=== PATIENT | male | born 1965 | race Caucasian/White ===

== ENCOUNTER → 2020-10-22 15:09 | Outpatient (CLI) | payer BC, SELFPAY ==
--- NOTE | 2020-10-22 15:19 | XR_ITS ---
PROCEDURE: XR CHEST 2V CLINICAL HISTORY: CHEST PAIN AT REST, SOB COMPARISON: No exams were available for comparison FINDINGS: Normal heart size. Mild prominence of the descending thoracic aorta. The lungs are clear without infiltrates, suspicious nodules, or pleural effusions. No acute bony abnormalities. IMPRESSION: No acute findings. Dictated by: Francisco J Anderson MD 10/22/2020 15:47 Francisco J Anderson MD in [place] 10/22/2020 15:47
== END ==
PROVIDERS: PCP Family Medicine; Visit Provider Family Medicine
DX: R07.9 Chest pain, unspecified (principal); R06.02 Shortness of breath
CPT/HCPCS: 71046

== ENCOUNTER → 2020-11-02 06:20 | Outpatient (CLI) | payer BC, SELFPAY ==
--- NOTE | 2020-11-02 | CA_ITS ---
APPROVED REPORT Exam: Exercise Treadmill Technologist: Umu Celis, Ht: 5 ft 7 in Wt: 195 lbs BSA: 2.00 m2 HR: 76 bpm BP: 144/94 mmHg Stress Test Details Test: Panfilo HR Resting HR: 80 bpm Max Heart Rate (APMHR): 163 bpm Max HR Achieved: 148 bpm Target HR (85% APMHR): 138 bpm % of APMHR: 90 Recovery HR: 107 bpm BP Resting BP: 143/93 mmHg Max BP: 200/100 mmHg Recovery BP: 191.0/94.0 mmHg ECG Resting ECG: Sinus Rhythm Clinical Exercise duration: 06:16 min Highest Stage Achieved: Exercise capacity: 7.0 METs Stress ECG Conclusion Panfilo protocol completed. Exercised 06:16. Stopped due to Shortness of breath MET's: 7.0 Max BP: 200/100 Max HR: 148 % of PM: 91% Symptoms: No CP, (+) SOB during peak exercise Arrythmias/Ectopy: No ectopy ST-T Changes: Less than 1.5mm ST Depression Conclusion: Images to follow Test Summary RECOVERY 04:00 0.0 0.0 105 . 191/ 94 . . REST . . . . . . . Standing REST 55:55 0.0 0.0 80 . 143/ 93 . . Stage 1 01:00 10.0 1.7 109 . . . . Stage 1 02:00 10.0 1.7 118 . 190/ 90 . . Stage 1 03:00 10.0 1.7 124 . 190/ 90 . . Stage 2 01:00 12.0 2.5 133 . . . . Stage 2 . . . . . . . Cardiolite injected Stage 2 02:00 12.0 2.5 139 . . . . Stage 2 03:00 12.0 2.5 144 . . . . Stage 3 00:16 14.0 3.4 146 . 200/100 . Stop exercise at 06:16 RECOVERY 01:00 0.0 0.0 140 . . . . RECOVERY 02:00 0.0 0.0 119 . . . . RECOVERY 03:00 0.0 0.0 107 . 192/ 99 . . RECOVERY 04:00 0.0 0.0 105 . 191/ 94 . . RECOVERY 05:00 0.0 0.0 101 . 150/ 94 . . RECOVERY 05:06 0.0 0.0 102 . 150/ 94 . . Electronically signed by : Kevin Black, 11/05/2020 08:42:24
--- NOTE | 2020-11-02 06:34 | NM_ITS ---
APPROVED REPORT Exam: Nuclear Stress Test Indication: chest pain..short of breath..fatigue Patient Location: Outpatient Stress Tech: Rosey Perez AR Tech:Emelyn GarayringtonSANTOSH RT(R)(N) Ht: 5 ft 7 in Wt: 195 lbs HR: 76 bpm BP: 146/94 mmHg BSA: 2.00 m2 BMI: 30.5 History: chest pain..short of breath..fatigue Procedure: Patient exercised on Panfilo protocol 6:16 minutes and sec, resting heart rate 76 bpm, resting blood pressure 146/94 mmHg, with exercise maximum heart rate achived was 116 bpm which is 91 % of the maximum predicted heart rate and blood pressure was 190/90 mmHg. Patient denied any complaint of chest pain. Patient has exercise capacity, achieved 7 METs of workload on treadmill, the blood pressure response to exercise was . Cardiac Stress and Resting SPECT Images: Cardiac Stress and Resting SPECT images were obtained using technetium 99m Myoview 10.70 mCi stress and 30.6 mCi at rest. EF 54 % Normal Conclusion: EF 54 % Normal Electronically signed by : Francisco J Anderson MD 11/05/2020 10:42:30
== END ==
PROVIDERS: PCP Family Medicine; Visit Provider Family Medicine
DX: R07.9 Chest pain, unspecified (principal); R06.02 Shortness of breath; I51.7 Cardiomegaly; Z82.49 Family history of ischemic heart disease and other diseases of the circulatory system
CPT/HCPCS: 78452; 93017; 93306; A9502

== ENCOUNTER → 2021-07-18 11:53 | Outpatient (CLI) | payer BC, OTHER, SELFPAY ==
--- NOTE | 2021-07-18 12:00 | XR_ITS ---
PROCEDURE: XR CERVICAL SPINE 5V CLINICAL INDICATION: CERVICAL RADICULOPATHY, NECK PAIN ON RT SIDE COMPARISON: No exams were available for comparison FINDINGS: There is slight reversal of cervical lordosis which may be due to patient positioning or muscle spasm. Degenerative disc disease is present at C5-C6 and C6-C7. Foraminal narrowing is present on the right at C3-C4 and to lesser degree at C4-C5 and C5-C6 and on the left at C5-C6 and C6-C7. No fracture or dislocation. No lytic or blastic change. IMPRESSION: Cervical spondylosis as described above with slight reversal of the cervical lordosis Dictated by: Francisco J Anderson MD 07/18/2021 15:44 Francisco J Anderson MD in [place] 07/18/2021 15:44
== END ==
PROVIDERS: PCP Family Medicine; Visit Provider Family Medicine
DX: M54.2 Cervicalgia (principal); M54.12 Radiculopathy, cervical region
CPT/HCPCS: 72050

== ENCOUNTER 2021-08-07 16:40 | Outpatient (RCR) | payer BC, SELFPAY ==
--- NOTE | 2021-08-07 18:06 | HMH.PTOPEV ---
PT Outpatient Evaluation Rehab PT Outpatient Evaluation Start: 08/07/21 16:52 Freq: Status: Active Protocol: Document 08/07/21 16:55 TYEAKILEY (Rec: 08/07/21 18:06 TYEKAILEY [email or web address]) Electronically Signed By Jose Le, PT 08/07/21 16:55 Outpatient Therapy Subjective History Subjective History This is the initial evaluation for Fidel Gayle. Pt is a 56 y/o male referred for cervical radicular pain. Pt states this started about two weeks ago when he noticed a burning on his R shoulder/ neck that would come and go. 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 Pt states he sometimes wakes up with sensation of pins and needles in his arm/ hand but usually the pain and burning stays in his shoulder. - note done by Juana Salinas, SPT flare up once a day lasting 10 minutes, hurts driving and sitting, Chief Complaint Pain,Stiff,Paresthesia Symptom Type Dull,Burning,Numbness,Tingling Symptoms Relieved By Rest/Positioning,Ice Symptoms Aggravated By Sitting,Physical Activity, Lifting Prior Functional Limitations None Current Functional Limitations Reaching,Lifting,Desk Work/ Reading,Driving,Sitting, Recreation Activity Symptom Description Intermittent Level of pain today (0-10) 2 Pain scale - at its best (0-10) 0 Pain scale - at its worst (0-10) 10 Cervical Eval Palpation Cervical Muscles R SCM,R Upper Trapezius,L Upper Trapezius Cervical/Thoracic Palpation Findings Spasm Posture Head/C-Spine Posture Sitting Position Flexed Head/C-Spine Posture Standing Position Flexed Flexibility Deficits Upper Trapezius Muscle Length (R) Moderate Tightness,(L) Moderate Tightness Scalene Group Muscle Length (R) Moderate Tightness,(L) Moderate Tightness Sternocleidomastoid Muscle Length (R) Moderate Tightness,(L) Moderate Tightness Pectoralis Major Muscle Length (R) Mild Tightness,(L) Mild Tightness Pectoralis Minor Muscle Length (R) Moderate Tightness,(L)
== END 2021-08-07 16:45 | disposition home or self-care (01) ==
LOC: PT 16:40
PROVIDERS: PCP Family Medicine; Visit Provider Family Medicine
DX: M54.12 Radiculopathy, cervical region (principal)
CPT/HCPCS: 97110; 97163

== ENCOUNTER → 2021-08-10 11:19 | Outpatient (CLI) | payer BC, SELFPAY ==
--- NOTE | 2021-08-10 11:25 | MR_ITS ---
PROCEDURE INFORMATION: Exam: MR Cervical Spine Without Contrast Exam date and time: 08/10/2021 11:25 AM Age: 56 years old Clinical indication: Cervicalgia and radicular pain (radiculopathy); Cervical region; Patient HX: RT arm pain TECHNIQUE: Imaging protocol: Multiplanar magnetic resonance images of the cervical spine without contrast. COMPARISON: CR XR CERVICAL SPINE 5V 07/18/2021 12:05 PM FINDINGS: C2-C3: No significant central or foraminal stenosis. C3-C4: Disc osteophyte complex eccentric towards the right side with right greater than left uncinate spurring. Findings result in mild central canal stenosis, severe right foraminal stenosis and mild left foraminal stenosis. C4-C5: Minimal disc osteophyte complex with bilateral uncinate spurring greater on the right. No significant central canal stenosis. There is moderate right and mild left foraminal stenosis. C5-C6: Disc osteophyte complex with bilateral uncinate spurring. Findings result in mild central canal stenosis and moderate to severe bilateral foraminal stenosis. C6-C7: Mild disc osteophyte complex with uncinate spurring greater on the left. No significant central canal stenosis. There is moderate to severe left foraminal stenosis. C7-T1: No significant central or foraminal stenosis. Examination is motion limited. Nonspecific straightening. Vertebral body height and AP alignment is preserved. Multilevel disc desiccation and disc space narrowing. Negative for discitis/osteomyelitis. No definite epidural fluid collection. No pathologic cord signal or cord expansion. IMPRESSION: 1. Patient motion. 2. No definite acute abnormality involving the cervical spine. 3. Degenerative findings as above including mild central canal stenosis at C3-C4 and C5-C6. No high-grade central canal stenosis or cord compression. 4. Multilevel foraminal stenoses including high-grade stenoses as above.
== END ==
PROVIDERS: PCP Family Medicine; Visit Provider Family Medicine
DX: M54.12 Radiculopathy, cervical region (principal); M54.2 Cervicalgia; M48.02 Spinal stenosis, cervical region; R29.898 Other symptoms and signs involving the musculoskeletal system
CPT/HCPCS: 72141; 76376

== ENCOUNTER → 2021-10-18 16:09 | Outpatient (CLI) | payer BC, SELFPAY ==
--- NOTE | 2021-10-18 16:13 | XR_ITS ---
FINAL REPORT CLINICAL HISTORY: PAIN IN RT WRIST FINDINGS: 3 views of the right wrist were obtained. There is no acute fracture or dislocation. There are mild degenerative changes. There is a small calcification adjacent to the ulnar styloid process. IMPRESSION: Mild degenerative change. Reviewed, Interpreted and Dictated by Moncho Otero III, MD Transcribed by Adolph Mon Authenticated by Moncho Otero III, MD on 10/18/2021 04:52:06 PM [facility]
--- NOTE | 2021-10-18 16:13 | XR_ITS ---
FINAL REPORT CLINICAL HISTORY: PAIN IN LT WRIST FINDINGS: LEFT WRIST Three views demonstrate no acute fracture or dislocation. There are mild degenerative changes. The soft tissues are unremarkable. IMPRESSION: Mild degenerative change. Reviewed, Interpreted and Dictated by Moncho Otero III, MD Transcribed by Adolph Mon Authenticated by Moncho Otero III, MD on 10/18/2021 04:52:08 PM [facility]
== END ==
PROVIDERS: PCP Family Medicine; Visit Provider Nurse Practitioner Family
DX: M25.532 Pain in left wrist (principal); M25.531 Pain in right wrist; M25.50 Pain in unspecified joint; I10 Essential (primary) hypertension; R53.83 Other fatigue; F51.01 Primary insomnia
CPT/HCPCS: 73110

== ENCOUNTER → 2021-10-31 07:10 | Outpatient (CLI) | payer BC, SELFPAY ==
--- NOTE | 2021-10-31 | CA_ITS ---
APPROVED REPORT Exam: Exercise Treadmill Technologist: Solange Ozuna, Ht: 5 ft 7 in Wt: 195 lbs BSA: 2.00 m2 HR: 85 bpm BP: 158/102 mmHg Rhythm: NSR, normal Medical History Medical History: HTN Medications: Lisinopri/HCTZ,,,,, Cardiac Risk Factors: HTN Stress Test Details Test: Dexter HR Resting HR: 86 bpm Max Heart Rate (APMHR): 162.460582 bpm Max HR Achieved: 157 bpm Target HR (85% APMHR): 137.782591 bpm % of APMHR: 96.91 Recovery HR: 140 bpm BP Resting BP: 165/104 mmHg Max BP: 220/90 mmHg Recovery BP: 220.0/90.0 mmHg ECG Resting ECG: NSR, normal Clinical Exercise duration: 07:46 min Highest Stage Achieved: Exercise capacity: 10.1 METs Stress ECG Conclusion During dexter protocol pt exercised total of 7:46. No CP noted. Approx. 1mm of horizontal and upsloping ST depression inferiorly and laterally at peak HR. Mild T wave inversion in lead 3 during recovery. Equivocal EKG changes. Myoview images reported separately. Test Summary RECOVERY 05:00 0.0 0.0 110 . 150/ 96 . . REST . . . . . . . Standing REST 04:41 0.0 0.0 86 . 165/104 . . Stage 1 01:00 10.0 1.7 112 . . . . Stage 1 02:00 10.0 1.7 118 . . . . Stage 1 03:00 10.0 1.7 121 . 205/100 . . Stage 2 01:00 12.0 2.5 126 . . . . Stage 2 02:00 12.0 2.5 130 . . . . Stage 2 03:00 12.0 2.5 135 . 212/100 . . Stage 3 01:00 14.0 3.4 147 . . . . Stage 3 01:46 14.0 3.4 156 . . . Stop exercise at 07:46 RECOVERY 01:00 0.0 0.0 141 . 220/ 90 . . RECOVERY 02:00 0.0 0.0 127 . 220/ 90 . . RECOVERY 03:00 0.0 0.0 116 . 193/ 89 . . RECOVERY 04:00 0.0 0.0 115 . 147/ 93 . . RECOVERY 05:00 0.0 0.0 110 . 150/ 96 . . RECOVERY 05:21 0.0 0.0 111 . 150/ 96 . . Electronically signed by : Tyson Kohler MD 10/31/2021 15:17:28
--- NOTE | 2021-10-31 07:18 | NM_ITS ---
APPROVED REPORT Exam: Nuclear Stress Test Indication: HTN, C.P., SOB, FATIGUE,OBESITY Patient Location: Outpatient Stress Tech: Solange LOJA Tech:Emelyn Lyles SANTOSH RT(R)(N) Ht: 5 ft 7 in Wt: 195 lbs HR: 86 bpm BP: 165/701 mmHg BSA: 2.00 m2 BMI: 30.5 History: HTN, C.P., SOB, FATIGUE,OBESITY Procedure: Patient exercised on Panfilo protocol 7:46 minutes and sec, resting heart rate 86 bpm, resting blood pressure 165/104 mmHg, with exercise maximum heart rate achived was 156 bpm which is 97 % of the maximum predicted heart rate and blood pressure was 212/100 mmHg. Test was stopped due to FATIGUE. Patient denied any complaint of chest pain. Patient has good exercise capacity, achieved 10.1 METs of workload on treadmill, the blood pressure response to exercise was Hypertensive. Electrocardiogram Resting electrocardiogram shows sinus rhythm, with exercise there is less than 1.[address] segment depression noted from the baseline EKG. The EKG portion of the exercise Myoview is negative for ischemia. Cardiac Stress and Resting SPECT Images: Cardiac Stress and Resting SPECT images were obtained using technetium 99m Myoview 29.6 mCi stress and 10.40 mCi at rest. Gated SPECT for analysis of segmental wall motion and calculation of the ejection fraction also done. Cardiac stress and resting SPECT images show uniform myocardial activity without segmental perfusion abnormality. Calculated ejection fraction is 54% with no regional wall motion abnormality, right ventricle is normal size and contractility. Conclusion: 1. The EKG portion of the exercise Myoview is negative for ischemia, patient has good exercise capacity achieved 10.1 METs of workload on treadmill, the blood pressure response to exercise was hypertensive, there was no exercise-induced chest discomfort. 2. No scintigraphic evidence of reversible ischemia seen, compared right ejection fraction 54% with no regional wall motion abnormality, right ventricle is normal size and contractility. 3. Normal exercise Myoview study except for hypertensive blood pressure response. Electronically signed by : Tyson Kohler MD 10/31/2021 15:33:40
--- NOTE | 2021-10-31 08:44 | CA_ITS ---
APPROVED REPORT EXAM: Comprehensive 2D, Doppler, and color-flow Echocardiogram Marble Mechanic Helper: Jazmin Devlin, ROBIN, RVS Ht: 5 ft 7 in Wt: 195lbs BSA: 2.00 BP: 146/90 mmHg Indications: Dilated Ao root, Fatigue, HTN, SOA, Family Hx stroke 2D Dimensions Aortic Root 3.96 cm LA Volume 44.90 mL Left Atrium 2.67 cm LA Volume Index 22.50 mL/m2 (M/F) 16-34 LVOT 2.04 cm (M/F) 1.5-2.5 Ascending Aorta 2.88 cm M-Mode Dimensions RVDd 2.98 cm (0.9-2.6) LA Diam 2.87 cm (1.9-4.0) LVDd 5.03 cm (3.5-5.7) Ao Diam 4.20 cm (2.0-3.7) LVDs 3.54 cm (3.5-5.7) IVSd 1.25 cm (0.6-1.1) PWd 1.09 cm (0.6-1.1) EF (Teich) 56.40% EPSs 0.44 cm FS 29.60% EDV (Teich) 119.90 mL TAPSE 2.64 (<1.7) ESV (Teich) 52.30 mL LV Diastology E Decel Time 247.00 (160-240 msec) E/A Ratio 0.87 MED E' 5.90 (< 7 cm/sec) MED A' 11.20 cm/s E'/MED E' Ratio 10.97 (>14) LAT E' 5.40 (<10 cm/sec) LAT A' 10.50 cm/s E/LAT E' Ratio 11.98 (>14) Aortic Valve LVOT Max 100.00 (70-110 cm/s) LVOT VTI 18.85 cm AoV Peak Jose. 112.00 (50-130 cm/s) AO Peak GR. 5.00 mmHg AO Mean GR. 2.50 (<5 mmHg) AO VTI 20.24 (18-25 cm) BHARAT (VTI) 3.04 (2.5-4.5 cm2) Mitral Valve MV A Velocity 74.00 (40-130 cm/s) E/A Ratio 0.87 MV Decel. Time 247.00 (160-240 ms) MV Mean Gr. 1.40 (<2mmHg) MV PHT 67.00 ms Pulmonary Valve PV Peak Velocity 82.00 (50-150 cm/s) Tricuspid Valve TR P. Velocity 227.00 cm/s Left Ventricle Left atrium is mildly enlarged, left ventricle is normal size, mild concentric left ventricular hypertrophy, visually estimated ejection fraction 55% with no regional wall motion abnormality, grade 1 diastolic dysfunction seen with tissue Doppler evidence of raise left atrial pressure. Right Ventricle Right atrium and right ventricle are mildly enlarged with normal contractility. Aortic Valve Aortic valve is trileaflet, there is no aortic stenosis or aortic insufficiency. Mitral Valve Mitral valve grossly normal, there is trace mitral regurgitation. Tricuspid Valve Tricuspid grossly normal, there is trace tricuspid regurgitation, tricuspid regurgitation jet velocity is inadequate for calculation of the right ventricular systolic pressure. Pulmonic Valve Pulmonic valve is poorly visualized. Great Vessels Aortic root is enlarged measuring 4.2 cm. Inferior vena cava normal size with normal inspiratory collapse. Pericardium No significant pericardial effusion. Conclusion 1. Mildly enlarged left atrium, normal left ventricular size, mild concentric left ventricular hypertrophy, visually estimated ejection fraction 55% with no regional wall motion abnormality, grade 1 diastolic dysfunction seen with tissue Doppler evidence of raise left atrial pressure. 2. Mildly enlarged aortic root measuring 4.2 cm, there is no aortic stenosis, there is no aortic insufficiency, aortic valve is trileaflet. 3. Trace mitral and tricuspid regurgitation. 4. No significant pericardial effusion. 5. Inferior vena cava normal size with normal inspiratory collapse. Electronically signed by : Tyson Kohler MD 10/31/2021 14:51:10
== END ==
PROVIDERS: PCP Family Medicine; Visit Provider Family Medicine
DX: R06.00 Dyspnea, unspecified (principal); R07.9 Chest pain, unspecified; I51.7 Cardiomegaly; I10 Essential (primary) hypertension; E66.9 Obesity, unspecified; Z68.30 Body mass index [BMI] 30.0-30.9, adult
CPT/HCPCS: 78452; 93017; 93306; A9502